=== PATIENT | female | born 1995 | race American Indian/Alaskan Native ===

== ENCOUNTER 2022-10-07 09:21 | Observation (INO) | payer OTHER ==
[~2022-10-07] VITALS: Ht 160 cm; Wt 63.5 kg
[2022-10-07 11:00] LABS: BASOPHILS ABSOLUTE AUTO 0.03 K/mm3 (0.00-0.23); BASOPHILS PERCENT AUTO 0 % (0-2); EOSINOPHILS PERCENT AUTO 1 % (0-6); Hematocrit 35.2 % (33.0-51.0); Hemoglobin 11.3 g/dL (11.5-16.0); IMMATURE GRAN ABSOLUTE AUTO 0.02 K/mm3 (0.00-0.10); IMMATURE GRAN PERCENT AUTO 0 % (0-1); LYMPHOCYTES ABSOLUTE AUTO 1.98 K/mm3 (0.84-5.20); LYMPHOCYTES PERCENT AUTO 22 % (21-46); MONOCYTES ABSOLUTE AUTO 0.37 K/mm3 (0.16-1.47); MONOCYTES PERCENT AUTO 4 % (4-13); Mean Corpuscular HGB Conc 32.1 g/dL (31.5-36.5); Mean Corpuscular Volume 78 fL (80-100); Mean Platelet Volume 9.5 fL (9.1-12.4); NEUTROPHILS ABSOLUTE AUTO 6.38 K/mm3 (1.96-9.15); NEUTROPHILS PERCENT AUTO 72 % (41-73); Platelet Count 410 K/mm3 (150-400); RDW Coefficient Variation 15.2 % (11.7-14.2); RDW Standard Deviation 42.6 fL (35.1-46.3); Red Blood Cell Count 4.52 M/mm3 (3.80-5.20); White Blood Cell Count 8.88 K/mm3 (4.00-11.30)
[2022-10-07 11:17] LABS: Albumin, Blood 3.8 g/dL (3.4-5.0); Bilirubin, Total 0.5 mg/dL (0.1-1.0); Bun/Creatinine Ratio 11.7 (12.0-20.0); Calcium, Blood 9.1 mg/dL (8.5-10.1); Creatinine, Blood 0.77 mg/dL (0.40-1.00); Globulin, Blood 3.7 g/dL (2.2-4.0); Potassium, Blood 3.7 mmol/L (3.5-5.5); Total Protein, Blood 7.5 g/dL (6.4-8.2)
[2022-10-07] MEDS ORDERED: BUPRENORPHIN-N1 EACH SL (11:47)
[2022-10-07] MEDS ORDERED: SEROQUEL100 MG PO (11:47)
[2022-10-07] MEDS ORDERED: BUPRENORPHIN-N1 EAC1 SL (11:48)
[2022-10-07] MEDS ORDERED: MELA3 PO (11:48)
[2022-10-07 13:43] LABS: Influenza A, PCR NEGATIVE (NEGATIVE); Influenza B, PCR NEGATIVE (NEGATIVE); Resp Syncytial Virus, PCR NEGATIVE (NEGATIVE); SARS-Cov-2 (COVID-19) PCR, MMC NEGATIVE (NEGATIVE)
[2022-10-07] MEDS ORDERED: PROM25 PO (15:02)
--- NOTE | 2022-10-07 18:33 | NUR ---
Patient admitted for intractable vomiting. Patient arrived to [facility] floor, pleasant & cooperative. Appears comfortable no N/V reported, no episodes of dry heaving observed. Patient resting in bed, boyfriend at bedside. IVF infusing. Bowel tones hypoactive, denies pain at this time. Vitals stable. Will continue plan of care.
--- NOTE | 2022-10-08 04:42 | NUR ---
Shift Summary Pt had very little nausea left when I arrived, and currently states she has no nausea at all. Pt has been drinking ice water and ate one orange jello which was tolerated well. Currently on clear liquid diet. Pt lower abdominal region is tender to palpation, especially the lower right quadrant. A GI panel is ordered, and pt had carolee alfred today, no BM this shift. Pt did ask if she could leave and I advised her it would be AMA, she opted to stay the night. VSS, slept well, pleasant and cooperative with care.
[2022-10-08 05:59] LABS: Hematocrit 32.2 % (33.0-51.0); Mean Corpuscular HGB 24.4 pg (26.0-34.0); Mean Corpuscular HGB Conc 31.1 g/dL (31.5-36.5); Mean Corpuscular Volume 79 fL (80-100); Mean Platelet Volume 9.8 fL (9.1-12.4); Platelet Count 340 K/mm3 (150-400); RDW Coefficient Variation 15.5 % (11.7-14.2); RDW Standard Deviation 44.5 fL (35.1-46.3); Red Blood Cell Count 4.09 M/mm3 (3.80-5.20); White Blood Cell Count 8.61 K/mm3 (4.00-11.30)
[2022-10-08 07:00] LABS: Calcium, Blood 8.2 mg/dL (8.5-10.1); Creatinine, Blood 0.73 mg/dL (0.40-1.00); Percent Saturation 8.4 % (15.0-50.0); Potassium, Blood 3.3 mmol/L (3.5-5.5)
--- NOTE | 2022-10-08 11:12 | NUR ---
RN NOTE MS LUIZA SAID THAT SHE WOULD LIKE TO GO HOME. MD HAS SEEN HER AND PLAN FOR DISCHARGE TODAY. REGULAR DIET ORDERED PT HAD NOT YET HAD SOLID FOOD AND SHE WAS GIVEN 1/2 SANDWICH, CHEESE AND PUDDING TO MONITOR FOR TOLERANCE. RLQ PAIN ON PALPATION BUT AT REST SHE HAS NO PAIN OR JUST MINIMAL DISCOMFORT. BED LOW, CALL LIGHT IN REACH.
[2022-10-08 12:58] LABS: Adenovirus F 40/41 Not Detected (NOT DETECT); Astrovirus Not Detected (NOT DETECT); Campylobacter Sp Not Detected (NOT DETECT); Cryptosporidium Not Detected (NOT DETECT); Cyclospora Cayetanensis Not Detected (NOT DETECT); E. Coli O157 Not Detected (NOT DETECT); Entamoeba Histolytica Not Detected (NOT DETECT); Enteroaggregative E. coli-EAEC Not Detected (NOT DETECT); Enteropathogenic E. coli-EPEC Not Detected (NOT DETECT); Enterotoxigenic E. coli-ETEC Not Detected (NOT DETECT); Giardia Lamblia Not Detected (NOT DETECT); Norovirus GI/GII Detected (NOT DETECT); Plesiomonas Shigelloides Not Detected (NOT DETECT); Rotavirus A Not Detected (NOT DETECT); Salmonella Sp Not Detected (NOT DETECT); Sapovirus Not Detected (NOT DETECT); Shiga Toxin-prod E. coli-STEC Not Detected (NOT DETECT); Shigella/Enteroin E. coli-EIEC Not Detected (NOT DETECT); Vibrio Cholerae Not Detected (NOT DETECT); Vibrio Sp Not Detected (NOT DETECT); Yersinia Enterocolitica Not Detected (NOT DETECT)
--- NOTE | 2022-10-08 13:03 | NUR ---
DISCHARGE NOTE MS JARRETT HAS DISCHARGED FROM [facility] TO HOME. SHE SAID THAT SHE FELT MUCH BETTER TODAY AND WAS EAGER TO BE DISCHARGED. PIV REMOVED INTACT. PT VERBALISED UNDERSTANDING OF WRITTEN AND VERBAL DISCHARGE INSTRUCTIONS. NO FURTHER C/O PAIN. SHE WAS GIVEN A W/C RIDE TO MEET HER S/O FOR DISCHARGE.
== END 2022-10-08 13:03 | disposition home or self-care (01) ==
LOC: ER 09:21 → MEDS 09:22
PROVIDERS: Emergency Medicine; Student in an Organized Health Care Education/Training Program; ADMIT Internal Medicine
DX: A08.39 Other viral enteritis (principal); F19.11 Other psychoactive substance abuse, in remission; E87.6 Hypokalemia; D50.9 Iron deficiency anemia, unspecified; E86.0 Dehydration; R55 Syncope and collapse; F17.210 Nicotine dependence, cigarettes, uncomplicated; Z88.0 Allergy status to penicillin; Z20.822 Contact with and (suspected) exposure to COVID-19
CPT/HCPCS: 0241U; 36415; 80048; 80053; 81025; 82728; 83540; 83550; 83690; 85025; 85027; 87507; 93005; 93010; 96361; A9270; G0378; J1200; J1630; J2405; J2550; J3480; J7030; J7050

== ENCOUNTER 2023-06-03 20:27 | Observation (INO) | payer OTHER ==
[~2023-06-03] VITALS: Ht 160 cm; Wt 95.2 kg
[~2023-06-03 20:27] MED LIST: BUPRENORPHIN-N1 EAC1 SL; BUPRENORPHIN-N1 EACH SL; MELA3 PO; PROM25 PO; SEROQUEL100 MG PO
[2023-06-03 22:03] LABS: BASOPHILS ABSOLUTE AUTO 0.05 K/mm3 (0.00-0.23); BASOPHILS PERCENT AUTO 0 % (0-2); EOSINOPHILS ABSOLUTE AUTO 0.18 K/mm3 (0.00-0.68); EOSINOPHILS PERCENT AUTO 1 % (0-6); Hematocrit 40.8 % (33.0-51.0); Hemoglobin 12.8 g/dL (11.5-16.0); IMMATURE GRAN ABSOLUTE AUTO 0.06 K/mm3 (0.00-0.10); IMMATURE GRAN PERCENT AUTO 0 % (0-1); LYMPHOCYTES ABSOLUTE AUTO 2.59 K/mm3 (0.84-5.20); LYMPHOCYTES PERCENT AUTO 16 % (21-46); MONOCYTES ABSOLUTE AUTO 0.41 K/mm3 (0.16-1.47); MONOCYTES PERCENT AUTO 3 % (4-13); Mean Corpuscular HGB 23.9 pg (26.0-34.0); Mean Corpuscular HGB Conc 31.4 g/dL (31.5-36.5); Mean Corpuscular Volume 76 fL (80-100); Mean Platelet Volume 9.4 fL (9.1-12.4); NEUTROPHILS ABSOLUTE AUTO 13.27 K/mm3 (1.96-9.15); NEUTROPHILS PERCENT AUTO 80 % (41-73); Platelet Count 423 K/mm3 (150-400); RDW Coefficient Variation 14.6 % (11.7-14.2); RDW Standard Deviation 39.7 fL (35.1-46.3); Red Blood Cell Count 5.36 M/mm3 (3.80-5.20); White Blood Cell Count 16.56 K/mm3 (4.00-11.30)
[2023-06-03 22:20] LABS: Albumin, Blood 3.9 g/dL (3.4-5.0); Albumin/Globulin Ratio 1.1 (0.8-1.8); Bilirubin, Total 0.4 mg/dL (0.1-1.0); Bun/Creatinine Ratio 10.3 (12.0-20.0); Creatinine, Blood 0.78 mg/dL (0.40-1.00); Globulin, Blood 3.6 g/dL (2.2-4.0); Potassium, Blood 4.4 mmol/L (3.5-5.5); Total Protein, Blood 7.5 g/dL (6.4-8.2)
[2023-06-03 22:56] LABS: Source, Urine Clean Catch
[2023-06-03] MEDS ORDERED: MIRALAX17 GM PO (22:58)
[2023-06-03 23:09] LABS: Bilirubin, Urine Neg (Neg); Blood, Urine Neg (Neg); Glucose Qualitative, Urine Neg (Neg); Ketones, Urine Neg (Neg); Leukocyte Esterase, Urine 1+ (Neg); Nitrite, Urine Neg (Neg); Protein, Urine 2+ (Neg); Urobilinogen, Urine 1+ (Normal)
[2023-06-03 23:17] LABS: Appearance, Urine Clear (Clear); Color, Urine Yellow (P-Yellow)
[2023-06-03 23:19] LABS: Amorphous Light (0-Heavy); Bacteria Mod /hpf; Mucus Light (0-Heavy); Red Blood Cells, Urine Not Seen /hpf (0-2); Squamous Epithelial Cells Few /hpf (Few); White Blood Cells, Urine 0-2 /hpf (0-5)
[2023-06-04 02:14] VITALS: BP 146/99
--- NOTE | 2023-06-04 05:19 | NUR ---
SHIFT SUMMERY, PT CAME UP TO FLOOR ON [place] PT ABLE TO TRANSFER SELF TO BED. PT HAD BEEN VOMITING IN ER BEFORE SHE ARRIVED PER REPORT. PT COLD GIVEN DWARM BLANKET AND PT REQUESTED SOME WATER PT VERY ANXOUS STATED SHE HAD NOT TAKEN HER SUBOXONE SINCE THE NIGH BEFORE DUE TO N/V. MEDICATION ORDRED AND PT ABLE TO TAKE MEDS. PT NOW SEEMS TO BE SLEEPING VERY WELL RESPONDS TO VERBAL COMAND AND RESPERATINS EVEN AND UNLABORED. CALL LIGHT IN REACH.
[2023-06-04 07:43] VITALS: BP 104/56
[2023-06-04 08:44] LABS: BASOPHILS ABSOLUTE AUTO 0.03 K/mm3 (0.00-0.23); BASOPHILS PERCENT AUTO 0 % (0-2); EOSINOPHILS ABSOLUTE AUTO 0.03 K/mm3 (0.00-0.68); EOSINOPHILS PERCENT AUTO 0 % (0-6); Hematocrit 37.7 % (33.0-51.0); Hemoglobin 11.8 g/dL (11.5-16.0); IMMATURE GRAN ABSOLUTE AUTO 0.02 K/mm3 (0.00-0.10); IMMATURE GRAN PERCENT AUTO 0 % (0-1); LYMPHOCYTES ABSOLUTE AUTO 1.45 K/mm3 (0.84-5.20); LYMPHOCYTES PERCENT AUTO 18 % (21-46); MONOCYTES ABSOLUTE AUTO 0.21 K/mm3 (0.16-1.47); MONOCYTES PERCENT AUTO 3 % (4-13); Mean Corpuscular HGB 24.1 pg (26.0-34.0); Mean Corpuscular HGB Conc 31.3 g/dL (31.5-36.5); Mean Corpuscular Volume 77 fL (80-100); Mean Platelet Volume 9.6 fL (9.1-12.4); NEUTROPHILS ABSOLUTE AUTO 6.44 K/mm3 (1.96-9.15); NEUTROPHILS PERCENT AUTO 79 % (41-73); Platelet Count 340 K/mm3 (150-400); RDW Coefficient Variation 14.6 % (11.7-14.2); RDW Standard Deviation 40.5 fL (35.1-46.3); Red Blood Cell Count 4.89 M/mm3 (3.80-5.20); White Blood Cell Count 8.18 K/mm3 (4.00-11.30)
[2023-06-04 09:13] LABS: Albumin, Blood 3.4 g/dL (3.4-5.0); Bilirubin, Total 0.6 mg/dL (0.1-1.0); Bun/Creatinine Ratio 11.1 (12.0-20.0); Calcium, Blood 8.3 mg/dL (8.5-10.1); Creatinine, Blood 0.72 mg/dL (0.40-1.00); Globulin, Blood 3.4 g/dL (2.2-4.0); Potassium, Blood 4.1 mmol/L (3.5-5.5); Total Protein, Blood 6.8 g/dL (6.4-8.2)
--- NOTE | 2023-06-04 10:27 | NUR ---
PATIENT REFUSED TO WAKE UP COMPLETELY TO TALK TO HER DOCTORS. SHE LAID THERE WITH HER EYES CLOSED AND ANSWERED QUESTIONS. AROUND 0900 THE PATIENT SAT UP AND ASKED THE RN WHEN SHE COULD GO HOME. DR. SPARKS SAID SHE WOULD DISCHARGE THE PATIENT TODAY BUT THE PATIENT DIDNT WANT TO WAIT TO BE DISCHARGED. PATIENT LEFT AMA THIS MORNING. GUM ROLLING MACHINE TENDER WENT OVER AMA FORM WITH PATIENT. THE PATIENT'S WAS HERE DURING TIME OF AMA.
== END 2023-06-04 10:10 | disposition left against medical advice (07) ==
LOC: ER 20:27 → MEDS 20:28
PROVIDERS: Physician Assistant; ADMIT Internal Medicine
DX: E86.0 Dehydration (principal); R11.2 Nausea with vomiting, unspecified; R53.1 Weakness; F11.20 Opioid dependence, uncomplicated; Z88.0 Allergy status to penicillin
CPT/HCPCS: 36415; 74177; 80053; 81001; 81025; 83605; 83690; 85025; 87040; 87086; 96365; 96375; 99285-25; A9270; G0378; J0744; J1790; J1885; J2405; J2765; J7030; Q9967

== ENCOUNTER 2023-08-11 07:22 | Emergency (ER) | payer OTHER ==
[~2023-08-11] VITALS: Ht 160 cm; Wt 68.0 kg
[~2023-08-11 07:22] MED LIST changes: +MIRALAX17 GM PO
[2023-08-11] MEDS ORDERED: OMEP20ER PO (07:39)
[2023-08-11] MEDS ORDERED: ALBU90OI INH (07:39)
[2023-08-11] MEDS ORDERED: CIPHYDOTSU RIGHTEAR (08:45)
[2023-08-11] MEDS ORDERED: AZIT500 PO (08:45)
[2023-08-11 08:59] VITALS: BP 140/79
== END 2023-08-11 09:01 | disposition home or self-care (01) ==
LOC: ER 07:22
DX: H66.91 Otitis media, unspecified, right ear (principal); H60.91 Unspecified otitis externa, right ear; Z88.0 Allergy status to penicillin
CPT/HCPCS: 99282

== ENCOUNTER → 2025-05-22 | Outpatient (CLI) | payer OTHER ==
[~2025-05-22] MED LIST changes: +ALBU90OI INH; +AZIT500 PO; +CIPHYDOTSU RIGHTEAR; +OMEP20ER PO
== END ==
LOC: LAB 18:35 → LAB SHORT 18:35
DX: Z32.01 Encounter for pregnancy test, result positive (principal); R10.84 Generalized abdominal pain
CPT/HCPCS: 87086

== ENCOUNTER 2025-05-25 08:14 | Emergency (ER) | payer OTHER ==
[~2025-05-25] VITALS: Ht 160 cm; Wt 81.7 kg
[2025-05-25] MEDS ORDERED: NS 1,000 ML IV SCH (09:05)
[2025-05-25] MEDS ORDERED: Diazepam 5 MG / ML 2ML SYR IV ONE ×2 (09:20→09:50)
[2025-05-25] MEDS ORDERED: Diazepam 5 MG / ML 2ML SYR ONE (09:21)
[2025-05-25 09:26] VITALS: BP 124/90
[2025-05-25 09:30] LABS: BASOPHILS ABSOLUTE AUTO 0.05 K/mm3 (0.00-0.23); BASOPHILS PERCENT AUTO 0 % (0-2); EOSINOPHILS ABSOLUTE AUTO 0.02 K/mm3 (0.00-0.68); EOSINOPHILS PERCENT AUTO 0 % (0-6); Hematocrit 40.3 % (33.0-51.0); Hemoglobin 13.8 g/dL (11.5-16.0); IMMATURE GRAN ABSOLUTE AUTO 0.03 K/mm3 (0.00-0.10); IMMATURE GRAN PERCENT AUTO 0 % (0-1); LYMPHOCYTES ABSOLUTE AUTO 2.81 K/mm3 (0.84-5.20); LYMPHOCYTES PERCENT AUTO 21 % (21-46); MONOCYTES ABSOLUTE AUTO 0.38 K/mm3 (0.16-1.47); MONOCYTES PERCENT AUTO 3 % (4-13); Mean Corpuscular HGB Conc 34.2 g/dL (31.5-36.5); Mean Corpuscular Volume 79 fL (80-100); NEUTROPHILS ABSOLUTE AUTO 10.00 K/mm3 (1.96-9.15); NEUTROPHILS PERCENT AUTO 75 % (41-73); NRBC ABSOLUTE 0.00 K/mm3 (0.00-0.02); NRBC Auto 0.0 /100 WBC (0.0-0.2); Platelet Count 373 K/mm3 (150-400); RDW Coefficient Variation 13.2 % (11.7-14.2); RDW Standard Deviation 37.2 fL (35.1-46.3)
[2025-05-25 09:45] LABS: Alanine Aminotransfer (ALT/SGP 23.0 U/L (12-78); Albumin, Blood 3.8 g/dL (3.4-5.0); Albumin/Globulin Ratio 1.0 (0.8-1.8); Anion Gap 9.0 mmol/L (3-11); Aspartate Aminotrans (AST/SGOT 21.0 U/L (12-37); Bilirubin, Total 0.8 mg/dL (0.1-1.0); Blood Urea Nitrogen 9.0 mg/dL (8-24); CO2, Blood 25.0 mmol/L (21-32); Calcium, Blood 9.2 mg/dL (8.5-10.1); Chloride, Blood 106.0 mmol/L (98-108); Creatinine, Blood 0.67 mg/dL (0.40-1.00); Globulin, Blood 4.0 g/dL (2.2-4.0); Glucose, Blood 99.0 mg/dL (70-99); Potassium, Blood 4.2 mmol/L (3.5-5.5); Sodium, Blood 136.0 mmol/L (136-145); Total Protein, Blood 7.8 g/dL (6.4-8.2)
== END 2025-05-25 10:00 | disposition left against medical advice (07) ==
LOC: ER 08:14
PROVIDERS: Physician Assistant
DX: O21.9 Vomiting of pregnancy, unspecified (principal); O99.341 Other mental disorders complicating pregnancy, first trimester; F41.0 Panic disorder [episodic paroxysmal anxiety]; O99.331 Smoking (tobacco) complicating pregnancy, first trimester; F17.210 Nicotine dependence, cigarettes, uncomplicated; Z3A.01 Less than 8 weeks gestation of pregnancy; Z53.29 Procedure and treatment not carried out because of patient's decision for other reasons; Z88.0 Allergy status to penicillin; Z79.899 Other long term (current) drug therapy
CPT/HCPCS: 76705; 80053; 83690; 84702; 85025; 96374; 99285-25; J3360; J7030

== ENCOUNTER → 2025-05-29 | Outpatient (CLI) | payer OTHER ==
[2025-05-29 10:11] LABS: BASOPHILS ABSOLUTE AUTO 0.04 K/mm3 (0.00-0.23); BASOPHILS PERCENT AUTO 0 % (0-2); EOSINOPHILS ABSOLUTE AUTO 0.06 K/mm3 (0.00-0.68); EOSINOPHILS PERCENT AUTO 1 % (0-6); Hematocrit 40.4 % (33.0-51.0); Hemoglobin 13.7 g/dL (11.5-16.0); IMMATURE GRAN ABSOLUTE AUTO 0.03 K/mm3 (0.00-0.10); IMMATURE GRAN PERCENT AUTO 0 % (0-1); LYMPHOCYTES ABSOLUTE AUTO 2.24 K/mm3 (0.84-5.20); LYMPHOCYTES PERCENT AUTO 20 % (21-46); MONOCYTES ABSOLUTE AUTO 0.33 K/mm3 (0.16-1.47); MONOCYTES PERCENT AUTO 3 % (4-13); Mean Corpuscular HGB Conc 33.9 g/dL (31.5-36.5); Mean Corpuscular Volume 80 fL (80-100); NEUTROPHILS ABSOLUTE AUTO 8.41 K/mm3 (1.96-9.15); NEUTROPHILS PERCENT AUTO 76 % (41-73); NRBC ABSOLUTE 0.00 K/mm3 (0.00-0.02); NRBC Auto 0.0 /100 WBC (0.0-0.2); Platelet Count 339 K/mm3 (150-400); RDW Coefficient Variation 13.1 % (11.7-14.2); RDW Standard Deviation 37.6 fL (35.1-46.3)
[2025-05-29 10:19] LABS: Alanine Aminotransfer (ALT/SGP 22.0 U/L (12-78); Albumin, Blood 3.9 g/dL (3.4-5.0); Albumin/Globulin Ratio 1.1 (0.8-1.8); Anion Gap 15.0 mmol/L (3-11); Aspartate Aminotrans (AST/SGOT 11.0 U/L (12-37); Bilirubin, Total 0.6 mg/dL (0.1-1.0); Blood Urea Nitrogen 9.0 mg/dL (8-24); CO2, Blood 24.0 mmol/L (21-32); Calcium, Blood 9.6 mg/dL (8.5-10.1); Chloride, Blood 104.0 mmol/L (98-108); Creatinine, Blood 0.71 mg/dL (0.40-1.00); Globulin, Blood 3.6 g/dL (2.2-4.0); Glucose, Blood 94.0 mg/dL (70-99); Potassium, Blood 3.6 mmol/L (3.5-5.5); Sodium, Blood 139.0 mmol/L (136-145); Total Protein, Blood 7.5 g/dL (6.4-8.2)
== END ==
LOC: LAB SHORT 10:04 → LAB 10:04
PROVIDERS: Emergency Medicine
DX: R11.2 Nausea with vomiting, unspecified (principal)
CPT/HCPCS: 80053; 83690; 85025

== ENCOUNTER 2025-07-24 06:12 | Day surgery (SDC) | payer OTHER ==
[~2025-07-24] VITALS: Ht 160 cm; Wt 74.2 kg
[2025-07-24] VITALS (9 sets, daily range): BP systolic 103–129; BP diastolic 61–83
--- NOTE | 2025-07-24 06:43 | NUR ---
Ambulatory in Day Surgery Patient confirms NPO status and agrees with scheduled surgery. Pre-Op teaching done. Pt verbalizes understanding. History, Chart, Medications and Allergies reviewed before start of procedure.Patient States Post-Procedure ride home has been arranged.
[2025-07-24] MEDS ORDERED: BIRTH CONTROL (07:00)
[2025-07-24] MEDS ORDERED: Methylergonovine Maleate 0.2MG / ML 1ML Amp ONE (07:43)
--- NOTE | 2025-07-24 07:51 | NUR ---
PT TOOK HER DAILY [address] MG [address] PER [address] PHILLIPS'S REQUEST
[2025-07-24] MEDS ORDERED: FentaNYL Citrate 50 MCG/ML 2 ML Injection ONE (07:52)
[2025-07-24] MEDS ORDERED: HYDROmorphone HCl/Pf 1MG SYR ONE (07:52)
[2025-07-24] MEDS ORDERED: FentaNYL Citrate 50 MCG/ML 2 ML Injection IV PRN ×2 (08:10→08:15)
[2025-07-24] MEDS ORDERED: HYDROmorphone HCl/Pf 1MG SYR IV PRN ×2 (08:10)
[2025-07-24] MEDS ORDERED: Ondansetron HCl 2 MG / ML 2ML Vial IV PRN (08:10)
[2025-07-24] MEDS ORDERED: Doxycycline Hyclate 100 MG in Dextrose 5% 250 ML IV ONE (08:55)
--- NOTE | 2025-07-24 09:55 | NUR ---
DISCHARGE NOTE PT A&OX4, BREATHING RA, VSS, TOLERATING PO INTAKE. AT BEDSIDE. Patient up to Ambulate independently. Gait steady. PT C/O MILD ABDOMINAL CRAMPING, OTHERWISE NO COMPLAINTS. SMALL AMOUNT OF SS DRAINAGE NOTED ON ABBIE PAD. Discharge instructions reviewed with patient. Patient verbalizes understanding. Copy given to patient to take home. Discharged via wheelchair to private car for ride home.
== END 2025-07-24 09:47 | disposition home or self-care (01) ==
LOC: ORSCMMR 06:12 → ORD 08:00 → ORSCMMR 08:00
PROVIDERS: Obstetrics & Gynecology
PROC: 10D17ZZ Extraction of Products of Conception, Retained, Via Natural or Artificial Opening (ICD-10-PCS; principal; 2025-07-24 08:00)
DX: O03.4 Incomplete spontaneous abortion without complication (principal); F17.210 Nicotine dependence, cigarettes, uncomplicated; K21.9 Gastro-esophageal reflux disease without esophagitis; Z79.899 Other long term (current) drug therapy
CPT/HCPCS: 76998; 88305; A9270; J1171; J2210; J2704; J3010; J7120